=== PATIENT | female | born 1980 | race Caucasian/White ===

== ENCOUNTER → 2023-06-03 12:13 | Outpatient (REF) | payer OTHER, SELFPAY | LOC: HWRAD 12:13 | PROVIDERS: ATTENDING PHYSICIAN Internal Medicine Gastroenterology; FAMILY PHYSICIAN Physician Assistant Medical | DX: R10.12 Left upper quadrant pain (principal); R14.0 Abdominal distension (gaseous) | CPT/HCPCS: 74177; Q9967 ==

== ENCOUNTER → 2023-07-27 12:21 | Outpatient (REF) | payer OTHER, SELFPAY | LOC: MRI 3T 12:21 | PROVIDERS: ATTENDING PHYSICIAN Pain Medicine Pain Medicine; FAMILY PHYSICIAN Physician Assistant Medical | DX: M54.2 Cervicalgia (principal) | CPT/HCPCS: 72141 ==

== ENCOUNTER → 2024-01-29 11:11 | Outpatient (REF) | payer OTHER, SELFPAY | LOC: RAD 11:11 | PROVIDERS: ATTENDING PHYSICIAN Internal Medicine; FAMILY PHYSICIAN Physician Assistant Medical | DX: M81.0 Age-related osteoporosis without current pathological fracture (principal); Z13.820 Encounter for screening for osteoporosis | CPT/HCPCS: 77080 ==

== ENCOUNTER 2024-02-12 11:36 | Emergency (ER) | payer OTHER, SELFPAY ==
[2024-02-12 11:54] VITALS: BP 139/69
--- NOTE | 2024-02-12 12:01 | ED.GENMED ---
ED Provider Triage
-
Patient seen by provider in Triage?: Seen in Triage
43 y/o F with h/o buipolar, seizure
n/v x 2 days, weak, lightheaded, near sycnope
h/o daily marijuana use
has had suspeccted cannabis hyperemsis before
has zofran at home but told not to take it last time
A medical screening examination has been initiated by a qualified medical provider. Based on the assessment performed at this time, it has been determined that an emergent medical condition may exist and the patient has been informed that further
medical evaluation and possible additional diagnostic testing may be needed.
HPI: This is a medical evaluation conducted in person to initiate diagnostic evaluation and provide initial therapeutics. Please see further documentation by the treating clinician.
GENERAL: Alert , in no apparent distress generalized not well appearing, holding an emesis bag
ENT: No visible abnormalities
LUNGS: No acute respiratory distress
NEUROLOGICAL: Alert and oriented
SKIN: Skin intact. No visible changes.
MUSCULOSKELETAL: Moving extremities normally
PSYCH: Normal and appropriate interaction.
43-year-old with nausea and vomiting several episodes over the last 2 days and a history of daily cannabis use. She apparently has had issues with bradycardia and maybe even QTc prolongation before I am told to hold the Zofran that she has. Will
start with screening labs EKG
History of Present Illness
General
Chief Complaint: Abdominal Symptoms
History of Present Illness
History of Present Illness:
SEE ED TRIAGE PROVIDER NOTE
Past History
Past History
ED Past Medical History: Seizures, Psychiatric (Bipolar, substance abuse maintained on Suboxone) and Other (Lupus, psoriatic arthritis. Fibromyalgia.)
ED Past Surgical History: Gynecological (Uterine ablation, tubal ligation)
Social History
Tobacco: Smoker
Alcohol: None
Drug: Former user (History of opiate abuse, maintained on Suboxone) and Marijuana
Personal:
Living: with family (Resides with sister)
Employment: Disabled
Family History
Family History: Other (n/c)
Phy Exam
Physical Exam
Physical Exam:
NOT PERFORMED, PT ELOPED
Course
Orders/Labs/Results
Orders:
Orders
02/12/24 12:01
Urinalysis Reflex To Culture Urgent
02/12/24 12:02
Electrocardiogram (*1) Urgent
Reason for Study: Fatigue / Weakness
EKG- Treatment ONCE
Test Result ONCE
02/12/24 12:15
Complete Blood Count/With Diff Urgent
Comprehensive Metabolic Panel Urgent
HCG, Serum Qualitative Screen Urgent
Lipase Urgent
Abnormal Lab Results
02/12/24
12:15
WBC 14.2 H 10^3/uL
(4.8-10.8)
RBC 3.71 L 10^6/uL
(4.20-5.40)
MCV 103.2 H fL
(81.0-99.0)
MCH 34.5 H pg
(27.0-31.0)
RDW 15.4 H %
(11.5-14.5)
Abs Immat Gran (auto) 0.1 H 10^3/uL
(0-0.05)
Absolute Neuts (auto) 7.8 H 10^3/uL
(1.4-6.5)
Absolute Lymphs (auto) 5.1 H 10^3/uL
(1.2-3.4)
Absolute Monos (auto) 1.2 H 10^3/uL
(0.1-0.6)
Immature Gran % 0.6 H %
(0-0.5)
BUN 24 H mg/dl
(7-17)
AST 56 H U/L
(14-36)
ALT 102 H U/L
(0-35)
Lipase 441 H U/L
(23-300)
02/12/24 12:15
02/12/24 12:15
Vital Signs
Initial and Last Documented VS:
Initial Vital Signs
Temp Pulse Resp BP Pulse Ox
36.7 C 50 16 139/69 698
02/12/24 11:54 02/12/24 11:54 02/12/24 11:54 02/12/24 11:54 02/12/24 11:54
Last Documented Vital Signs
Temp Pulse Resp BP Pulse Ox
36.7 C 50 16 139/69 698
02/12/24 11:54 02/12/24 11:54 02/12/24 11:54 02/12/24 11:54 02/12/24 11:54
*Critical Care Note
Total Time (30-74mins, 75-104mins- exclusive of procedures): Not Applicable
Update Note
Update Note:
ELOPED PRIOR TO LAB RESULTS
ED Attending Note
-
Portions of this chart may have been created with voice recognition software.� Occasional wrong word or��sound alike� substitutions may have occurred due to the inherent limitations of voice recognition software.
Discharge Plan
Departure
Patient Disposition: Elopement
Prescriptions:
No Action
acyclovir 200 MG capsule
400 mg PO DAILY
cetirizine 10 MG tablet
10 mg PO HS
buprenorphine-naloxone 1 TAB tablet, sublingual
1 tab sublingual BID
divalproex 250 MG tablet,delayed release (DR/EC)
500 mg PO HS
divalproex 250 MG tablet,delayed release (DR/EC)
250 mg PO .QAM
Epidiolex 1 UNIT solution
1 applic inhalation PRN PRN (Reason: chronic pain)
prochlorperazine [Compro] 25 MG suppository
25 mg OR [id number] PRN (Reason: nausea/vomiting) Qty: 10 3RF
ondansetron 4 mg tablet,disintegrating
4 mg PO Q8H PRN (Reason: nausea and vomiting) 5 Days Qty: 10 0RF
Interventions
Interventions:
*Risk Screen - Suicide Last Done: 02/12/24 11:54
*Neglect/Abuse Screening Last Done: 02/12/24 11:54
*Nursing Disposition Last Done: 02/12/24 13:25
Discharge Date and Time
Print Language: IRISH
[2024-02-12 12:39] LABS: % Basophils 0.1 % (0-2); % Eosinophils 0.7 % (0-6); % Immature Granulocytes 0.6 % (0-0.5); % Lymphocytes 35.8 % (20.5-51.1); % Monocytes 8.1 % (1.7-9.3); % Neutrophils 54.7 % (42.2-75.2); Absolute Eosinophils 0.1 10^3/uL (0-0.7); Absolute Immature Granulocytes 0.1 10^3/uL (0-0.05); Absolute Lymphocytes 5.1 10^3/uL (1.2-3.4); Absolute Monocytes 1.2 10^3/uL (0.1-0.6); Absolute Neutrophils 7.8 10^3/uL (1.4-6.5); Hematocrit 38.3 % (37.0-47.0); Hemoglobin 12.8 g/dL (12.0-16.0); Mean Corp Hgb Conc. 33.4 g/dL (33.0-37.0); Mean Corpuscular Hgb 34.5 pg (27.0-31.0); Mean Corpuscular Volume 103.2 fL (81.0-99.0); Mean Platelet Volume 9.9 fL (7.4-10.4); Nucleated Red Blood Cells % 0 %; Platelet Count 361 10^3/uL (130-400); Red Blood Cell Count 3.71 10^6/uL (4.20-5.40); Red Cell Dist. Width 15.4 % (11.5-14.5); White Blood Cell Count 14.2 10^3/uL (4.8-10.8)
[2024-02-12 12:59] LABS: HCG, Serum Qualitative Screen Negative
[2024-02-12 13:18] LABS: ALT (SGPT) 102 U/L (0-35); AST (SGOT) 56 U/L (14-36); Albumin 4.5 g/dl (3.5-5.0); Alkaline Phosphatase 74 U/L (38-126); Blood Urea Nitrogen 24 mg/dl (7-17); Calcium 9.7 mg/dl (8.4-10.2); Carbon Dioxide 25 mmol/L (22-30); Chloride 107 mmol/L (98-107); Glucose 90 mg/dl (70-99); Potassium 4.1 mmol/L (3.5-5.1); Sodium 142 mmol/L (135-145); Total Bilirubin 0.5 mg/dl (0.2-1.3); Total Protein 7.3 g/dl (6.3-8.2); eGFR > 60.00
[2024-02-12 13:19] LABS: Lipase 441 U/L (23-300)
--- NOTE | 2024-02-12 13:20 | EDRN ---
Pt observed getting into family car and leaving ER without notification. Elopement noted.
== END 2024-02-12 13:25 | disposition left against medical advice (07) ==
LOC: EMR 11:36
PROVIDERS: Physician Assistant; EMERGENCY PHYSICIAN Student in an Organized Health Care Education/Training Program
DX: R11.2 Nausea with vomiting, unspecified (principal); R00.1 Bradycardia, unspecified; F17.200 Nicotine dependence, unspecified, uncomplicated; F12.90 Cannabis use, unspecified, uncomplicated; Z53.21 Procedure and treatment not carried out due to patient leaving prior to being seen by health care provider
CPT/HCPCS: 99284; 80053; 83690; 84703; 85025; 93005

== ENCOUNTER → 2024-04-02 13:58 | Outpatient (REF) | payer OTHER, SELFPAY | LOC: RAD 13:58 | PROVIDERS: ATTENDING PHYSICIAN Internal Medicine | DX: M54.2 Cervicalgia (principal); L40.50 Arthropathic psoriasis, unspecified; M54.9 Dorsalgia, unspecified; M54.6 Pain in thoracic spine; M54.50 Low back pain, unspecified; M81.0 Age-related osteoporosis without current pathological fracture | CPT/HCPCS: 72052; 72072; 72100 ==

== ENCOUNTER 2024-12-30 15:42 | Emergency (ER) | payer OTHER, SELFPAY ==
[2024-12-30 15:47] VITALS: BP 109/73
[2024-12-30 16:02] LABS: Hematocrit 35.1 % (37.0-47.0); Hemoglobin 11.9 g/dL (12.0-16.0); Mean Corp Hgb Conc. 33.9 g/dL (33.0-37.0); Mean Corpuscular Volume 101.7 fL (81.0-99.0); Nucleated Red Blood Cells % 0 %; Platelet Count 286 10^3/uL (130-400); Red Cell Dist. Width 14.8 % (11.5-14.5)
[2024-12-30 16:27] LABS: ALT (SGPT) 19 U/L (0-35); AST (SGOT) 22 U/L (14-36); Albumin 3.6 g/dl (3.5-5.0); Alkaline Phosphatase 114 U/L (38-126); Blood Urea Nitrogen 15 mg/dl (7-17); Calcium 8.9 mg/dl (8.4-10.2); Carbon Dioxide 27 mmol/L (22-30); Chloride 104 mmol/L (98-107); Glucose 108 mg/dl (70-99); Potassium 3.6 mmol/L (3.5-5.1); Sodium 137 mmol/L (135-145); Total Protein 6.3 g/dl (6.3-8.2); eGFR > 60.00
--- NOTE | 2024-12-30 18:29 | ED.GENMED ---
History of Present Illness
General
Chief Complaint: Dehydration Symptoms
Source: patient
Exam Limitations: none
Time Seen by Provider: 12/30/24 18:03
Nursing documentation reviewed up to this point in time: agreed with
History of Present Illness
History of Present Illness:
44-year-old female with history of epilepsy, kidney cyst, anxiety, bipolar disorder, substance abuse presents stating 'I think I am dehydrated.' She states she was cleaning her bathroom and she usually sweats a lot but she did not sweat, she states
her stools are little loose, her urine has been clear, she started 5 days ago on a 4-week taper of prednisone for her flare of lupus and psoriatic arthritis. She denies CP, SOB, abdominal pain. She has been drinking plenty of water she has a 16
ounce water container that she says she has drank 3 of them so far today says she is drinking plenty.
Past History
Past History
ED Past Medical History: Seizures, Psychiatric (Bipolar, substance abuse maintained on Suboxone) and Other (Lupus, psoriatic arthritis. Fibromyalgia.)
ED Past Surgical History: Gynecological (Uterine ablation, tubal ligation)
Social History
Tobacco: Smoker
Alcohol: None
Drug: Former user (History of opiate abuse, maintained on Suboxone) and Marijuana
Personal:
Living: with family (Resides with sister)
Employment: Disabled
Family History
Family History: Other (n/c)
Review of Systems
Review of Systems
Allergies reviewed?: Yes
All Other Systems: ROS reviewed and negative except as documented in HPI and ROS
Phy Exam
Physical Exam
Physical Exam:
GENERAL: No acute distress. A&Ox3.
CONSTITUTIONAL: Afebrile.
EYES: clear, conjunctivae normal
ENMT: moist mucus membranes, Pharynx nl
RESPIRATORY: Regular respirations, nonlabored, lungs clear.
CARDIOVASCULAR: Regular rate and rhythm, no murmurs, no rubs.
GI: Soft, nontender, normal BS
MUSCULOSKELETAL: Moves with ease. Well perfused.
SKIN: Warm, dry, pink
PSYCH: Normal mood and affect. Well kept, interactive and appropriate
NEUROLOGIC: Awake, alert and oriented. No focal neurological deficits
Course
Orders/Labs/Results
Orders:
Orders
12/30/24 15:56
Complete Blood Count/With Diff Urgent
Comprehensive Metabolic Panel Urgent
Abnormal Lab Results
12/30/24
15:56
WBC 12.0 H 10^3/uL
(4.8-10.8)
RBC 3.45 L 10^6/uL
(4.20-5.40)
Hgb 11.9 L g/dL
(12.0-16.0)
Hct 35.1 L %
(37.0-47.0)
MCV 101.7 H fL
(81.0-99.0)
MCH 34.5 H pg
(27.0-31.0)
RDW 14.8 H %
(11.5-14.5)
Abs Immat Gran (auto) 0.1 H 10^3/uL
(0-0.05)
Absolute Lymphs (auto) 5.1 H 10^3/uL
(1.2-3.4)
Absolute Monos (auto) 1.4 H 10^3/uL
(0.1-0.6)
Monocytes % 11.6 H %
(1.7-9.3)
Glucose 108 H mg/dl
(70-99)
12/30/24 15:56
12/30/24 15:56
Vital Signs
Initial and Last Documented VS:
Initial Vital Signs
Temp Pulse Resp BP Pulse Ox
98.2 F 87 18 109/73 99
12/30/24 15:47 12/30/24 15:47 12/30/24 15:47 12/30/24 15:47 12/30/24 15:47
Last Documented Vital Signs
Temp Pulse Resp BP Pulse Ox
98.2 F 87 18 109/73 99
12/30/24 15:47 12/30/24 15:47 12/30/24 15:47 12/30/24 15:47 12/30/24 18:31
MDM/Problems Addressed
Differential Diagnosis Includes:
Dehydration, medication side effect
MDM/Problems Addressed:
44-year-old female with history of epilepsy, kidney cyst, anxiety, bipolar disorder, substance abuse presents stating 'I think I am dehydrated.' She states she was cleaning her bathroom and she usually sweats a lot but she did not sweat, she states
her stools are little loose, her urine has been clear, no UTI symptoms, she started 5 days ago on a 4-week taper of prednisone for her flare of lupus and psoriatic arthritis. She denies CP, SOB, abdominal pain. She has been drinking plenty of
water she has a 16 ounce water container that she says she has drank 3 of them so far today says she is drinking plenty.
CBC, CMP with no clinically significant abnormality, no indication of dehydration
Patient reassured that her lab work is showing no dehydration, she states that is reassuring; this may be a side effect from her prednisone medication
She is comfortable going home
*Pulse Oximetry
SaO2: 99
Oxygen Mode of Delivery: Room air
Patient hypoxic: not evaluated
*Critical Care Note
Total Time (30-74mins, 75-104mins- exclusive of procedures): Not Applicable
ED Attending Note
-
Portions of this chart may have been created with voice recognition software.� Occasional wrong word or��sound alike� substitutions may have occurred due to the inherent limitations of voice recognition software.
Discharge Plan
Departure
Patient Disposition: Home (Routine Discharge)
Date of Disposition: 12/30/24
Time of Disposition: 18:37
Patient with high blood pressure during this ER visit?: No
Condition: Good
Discharge Problem:
Medication side effect
Instructions: Side effects from medicines in adults - ED (DC)
Prescriptions:
No Action
acyclovir 200 MG capsule
400 mg PO DAILY
cetirizine 10 MG tablet
10 mg PO HS
buprenorphine-naloxone 1 TAB tablet, sublingual
1 tab sublingual BID
divalproex 250 MG tablet,delayed release (DR/EC)
500 mg PO HS
divalproex 250 MG tablet,delayed release (DR/EC)
250 mg PO .QAM
Epidiolex 1 UNIT solution
1 applic inhalation PRN PRN (Reason: chronic pain)
prochlorperazine [Compro] 25 MG suppository
25 mg VT [id number] PRN (Reason: nausea/vomiting) Qty: 10 3RF
ondansetron 4 mg tablet,disintegrating
4 mg PO Q8H PRN (Reason: nausea and vomiting) 5 Days Qty: 10 0RF
Referrals:
Lizz Ortiz PA-C [Family Provider, Internal Medicine] - As needed
Activity Restrictions/Additional Instructions:
As we discussed, your lab work today is normal, specifically no sign of dehydration.
Continue to drink plenty of fluids. Your symptoms may be a sign of of the prednisone
Interventions
Interventions:
*Nursing Disposition Last Done: 12/30/24 18:57
ED- Neurological Assessment Last Done: 12/30/24 18:55
Discharge Date and Time
Discharge Date/Time: 12/30/24 18:55
Print Language: SOUTH AFRICAN
== END 2024-12-30 18:55 | disposition home or self-care (01) ==
LOC: EMR 15:42
PROVIDERS: Emergency Medicine; EMERGENCY PHYSICIAN Student in an Organized Health Care Education/Training Program; FAMILY PHYSICIAN Physician Assistant Medical
DX: R19.7 Diarrhea, unspecified (principal); T38.0X5A Adverse effect of glucocorticoids and synthetic analogues, initial encounter; G40.909 Epilepsy, unspecified, not intractable, without status epilepticus; F31.9 Bipolar disorder, unspecified; F41.9 Anxiety disorder, unspecified; M32.9 Systemic lupus erythematosus, unspecified; L40.50 Arthropathic psoriasis, unspecified; M79.7 Fibromyalgia; F17.200 Nicotine dependence, unspecified, uncomplicated
CPT/HCPCS: 99283; 80053; 85025

== ENCOUNTER → 2025-01-06 12:25 | Outpatient (REF) | payer OTHER, SELFPAY | LOC: RAD 12:25 | PROVIDERS: ATTENDING PHYSICIAN Internal Medicine; FAMILY PHYSICIAN Physician Assistant Medical | DX: M54.2 Cervicalgia (principal) | CPT/HCPCS: 72040 ==

== ENCOUNTER 2025-01-20 02:32 | Emergency (ER) | payer OTHER, SELFPAY ==
--- NOTE | 2025-01-20 03:02 | DOWNTIME ---
There was a [employer] Client Boiler Tender Downtime on 01/20/2025 from 0100 to 01/20/2025 at 0255. Downtime documentation of patient's care, including medication administrations, has been reconciled in the electronic record per guidelines. Refer to the
patient's paper chart under the miscellaneous tab to see printed paper medication records and downtime forms.
[2025-01-20] MEDS: TORADOL 15 MG IM (05:05)
[2025-01-20 05:08] VITALS: BP 110/81
--- NOTE | 2025-01-20 05:17 | ED.GENMED ---
History of Present Illness
General
Chief Complaint: Extremity Pain (non-traumatic)
Source: patient
Time Seen by Provider: 01/20/25 05:02
Nursing documentation reviewed up to this point in time: agreed with
History of Present Illness
History of Present Illness:
Note:
CHIEF COMPLAINT(S)
Autoimmune flare with bone pain.
HISTORY OF PRESENT ILLNESS
The patient is a 44-year-old female with a history of autoimmune problems, presenting with a severe pain flare. She describes experiencing a deep bone pain that began in her feet and neck, spreading to her sternum, ribs, arms, and legs over several
hours. Alongside the pain, the patient reports skin sensitivity over the areas where the bone pain is located. The patient relates these symptoms to a potential flare of her autoimmune condition, and notes recent imaging and laboratory tests were
performed approximately two weeks ago. She is awaiting an MRI scheduled for March to rule out any potential infection. The patient denies taking pain management medications regularly, currently managing her condition with Benlysta (belimumab)
injections and methotrexate injections. Her counselor aid, Dr. Small, had initially prescribed a prednisone taper for previous flares, which resulted in an increased dose without significant relief. The patient indicates she was advised to avoid
nonsteroidal anti-inflammatory drugs (NSAIDs), though no specific cause was given for this instruction. Despite this, she has accepted an injection of Toradol (ketorolac) proposed during this visit as a potential means of symptom relief.
MEDICATIONS
- Benlysta (belimumab) injections
- Methotrexate injections
- Prednisone taper
PHYSICAL EXAM
General: Alert, no acute distress.
Skin: Warm, dry.
Head: Normocephalic, atraumatic.
Neck: Supple, trachea midline.
Eye Ears, nose, mouth and throat: Oral mucosa moist.
Cardiovascular: Normal peripheral perfusion, No edema.
Respiratory: Respirations are non-labored.
Gastrointestinal: Abdomen nondistended.
Back: Normal range of motion, Normal alignment.
Musculoskeletal: Normal range of motion, normal strength.
Neurological: Alert and oriented to person, place, time, and situation, No focal neurological deficit observed.
Psychiatric: Cooperative, appropriate mood & affect.
PLAN
1. Administer a low-dose injection of Toradol (ketorolac) to help manage current pain flare.
2. Follow up with counselor aid Dr. Small regarding ongoing management and potential medication adjustments.
3. Encourage the completion of the scheduled MRI to further investigate the cause of current symptoms.
4. Discharge with instructions to contact Dr. Small for further evaluation and adjustment of treatment regimen if necessary.
DIFFERENTIAL DIAGNOSIS
The Differential Diagnosis includes, in no particular order and is not limited to:
1. Autoimmune flare
2. Rheumatoid arthritis
3. Fibromyalgia
4. Osteoarthritis
5. Systemic lupus erythematosus
6. Infection-related inflammatory response
7. Medication-induced myalgia
8. Polymyalgia rheumatica
9. Bone metastasis
10. Peripheral neuropathy
Disposition:
SUMMARY OF ENCOUNTER
A 44-year-old female presented to the emergency department with an autoimmune flare-up. She is currently on steroids for management. The patient reported having received a Toradol (ketorolac) injection, which has improved her symptoms. She expressed
a desire to be discharged home. It was noted that she has been under the care of both her counselor aid and family doctor.
DISPOSITION
Discharge.
ASSESSMENT
The patient is experiencing an autoimmune flare, likely related to her known autoimmune condition, currently managed with steroid therapy.
PLAN
- Discharge the patient with instructions to continue with her current treatment plan.
- Advise follow-up with rheumatology as scheduled.
FOLLOW-UP INSTRUCTIONS
The patient is instructed to follow up with her counselor aid this morning as planned.
MEDICATION RECONCILIATION
- Currently on steroid therapy as part of her autoimmune condition management.
- Received Toradol (ketorolac) injection, which has provided symptom relief.
MEDICAL DECISION MAKING
- Number and Complexity of Problems Addressed: Chronic conditions affecting care include rheumatologic autoimmune disorders. Potential differential diagnosis includes autoimmune flare, rheumatoid arthritis, fibromyalgia, osteoarthritis, systemic
lupus erythematosus, infection-related inflammatory response, medication-induced myalgia, polymyalgia rheumatica, bone metastasis, and peripheral neuropathy.
CRITICAL CARE TIME
N/A
DIAGNOSIS
Autoimmune disease flare (ICD-10: M35.9).
Past History
Past History
ED Past Medical History: Seizures, Psychiatric (Bipolar, substance abuse maintained on Suboxone) and Other (Lupus, psoriatic arthritis. Fibromyalgia.)
ED Past Surgical History: Gynecological (Uterine ablation, tubal ligation)
Social History
Tobacco: Smoker
Alcohol: None
Drug: Former user (History of opiate abuse, maintained on Suboxone) and Marijuana
Personal:
Living: with family (Resides with sister)
Employment: Disabled
Family History
Family History: Other (n/c)
Phy Exam
Physical Exam
Physical Exam:
.
Course
Orders/Labs/Results
Orders:
Orders
01/20/25 05:02
Ketorolac [Toradol] 15 mg IM NOW STA
Vital Signs
Initial and Last Documented VS:
Initial Vital Signs
Pulse Resp BP Pulse Ox
74 15 110/81 98
01/20/25 05:08 01/20/25 05:08 01/20/25 05:08 01/20/25 05:08
Last Documented Vital Signs
Pulse Resp BP Pulse Ox
74 15 110/81 98
01/20/25 05:08 01/20/25 05:08 01/20/25 05:08 01/20/25 05:20
*Pulse Oximetry
SaO2: 98
Oxygen Mode of Delivery: Room air
Patient hypoxic: no
*Critical Care Note
Total Time (30-74mins, 75-104mins- exclusive of procedures): Not Applicable
ED Attending Note
-
Portions of this chart may have been created with voice recognition software.� Occasional wrong word or��sound alike� substitutions may have occurred due to the inherent limitations of voice recognition software.
Discharge Plan
Departure
Patient Disposition: Home (Routine Discharge)
Date of Disposition: 01/20/25
Time of Disposition: 05:17
Patient with high blood pressure during this ER visit?: Yes
Condition: Good
Discharge Problem:
Autoimmune disorder, Musculoskeletal pain
Instructions: Muscle and Bone Pain (DC), BLOOD PRESSURE
Prescriptions:
No Action
acyclovir 200 MG capsule
400 mg PO DAILY
cetirizine 10 MG tablet
10 mg PO HS
buprenorphine-naloxone 1 TAB tablet, sublingual
1 tab sublingual BID
divalproex 250 MG tablet,delayed release (DR/EC)
500 mg PO HS
divalproex 250 MG tablet,delayed release (DR/EC)
250 mg PO .QAM
Epidiolex 1 UNIT solution
1 applic inhalation PRN PRN (Reason: chronic pain)
prochlorperazine [Compro] 25 MG suppository
[address] [id number] PRN (Reason: nausea/vomiting) Qty: 10 3RF
ondansetron 4 mg tablet,disintegrating
4 mg PO Q8H PRN (Reason: nausea and vomiting) 5 Days Qty: 10 0RF
Referrals:
Lizz Ortiz PA-C [Family Provider, Internal Medicine]
Activity Restrictions/Additional Instructions:
Thank You for choosing [facility].
It was a pleasure meeting you and taking part in your care. We hope for your continued healing and wellness.
Please read discharge instructions in their entirety. However, they are for general education and may not describe your exact diagnosis at discharge. Information on your ER visit and medical conditions were discussed with you along with appropriate
follow up information...
If indicated, please take your medications as instructed and indicated on discharge paperwork.
Please schedule a follow up appointment as directed. Call to schedule an appointment
Please return to the emergency department with ANY change in, persisting, or worsening of symptoms. If any of your symptoms do not improve, or persist, or become more severe within 6-12 hours, please return to the emergency department for further
care.
Please return to the emergency department if you develop a headache, neck pain/stiffness, fever greater than 100.4F, chest pain, shortness of breath, persistent nausea, vomiting, slurred speech, difficulty walking, numbness/tingling, weakness, signs
of infection or any other symptoms that are worrisome to you.
If you have any questions or concerns please do not hesitate to call the Hospital at .
Interventions
Interventions:
*Nursing Disposition Last Done: 01/20/25 05:29
Discharge Date and Time
Discharge Date/Time: 01/20/25 05:30
Print Language: SAUDI ARABIAN
== END 2025-01-20 05:30 | disposition home or self-care (01) ==
LOC: EMR 02:32
PROVIDERS: EMERGENCY PHYSICIAN Student in an Organized Health Care Education/Training Program; FAMILY PHYSICIAN Physician Assistant Medical
DX: D89.89 Other specified disorders involving the immune mechanism, not elsewhere classified (principal); M79.18 Myalgia, other site; F17.200 Nicotine dependence, unspecified, uncomplicated; L40.50 Arthropathic psoriasis, unspecified
CPT/HCPCS: 96372; 99284